=== PATIENT | female | born 1980 | race Two or more races ===

== ENCOUNTER 2017-04-30 19:04 | Emergency (ER) | payer OTHER ==
[~2017-04-30] VITALS: Ht 162.6 cm; Wt 104.3 kg
[2017-04-30] MEDS ORDERED: BYSTOLIC10 MG (20:01)
[2017-05-01] MEDS ORDERED: ALBUTEROL2.5 MG/3 M IH (04:28)
[2017-05-01] MEDS ORDERED: ZITHROMAX500 MG PO (04:28)
== END 2017-05-01 04:23 | disposition home or self-care (01) ==
LOC: ER 19:04
DX: J11.1 Influenza due to unidentified influenza virus with other respiratory manifestations (principal); J06.9 Acute upper respiratory infection, unspecified

== ENCOUNTER 2018-12-25 16:27 | Emergency (ER) | payer OTHER ==
[~2018-12-25] VITALS: Ht 162.6 cm; Wt 97.5 kg
[~2018-12-25 16:27] MED LIST: ALBUTEROL2.5 MG/3 M IH; BYSTOLIC10 MG; ZITHROMAX500 MG PO
[2018-12-25] MEDS ORDERED: BYSTOLIC10 MG PO (18:36)
[2018-12-25] MEDS ORDERED: VISTARIL25 MG PO (18:36)
== END 2018-12-25 19:56 | disposition home or self-care (01) ==
LOC: ER 16:27
DX: I16.0 Hypertensive urgency (principal); I10 Essential (primary) hypertension; F06.4 Anxiety disorder due to known physiological condition

== ENCOUNTER 2019-02-09 12:32 | Emergency (ER) | payer OTHER ==
[~2019-02-09] VITALS: Ht 162.6 cm; Wt 97.5 kg
[~2019-02-09 12:32] MED LIST changes: +BYSTOLIC10 MG PO; +VISTARIL25 MG PO
[2019-02-09] MEDS ORDERED: KETO10TA2 PO (16:30)
== END 2019-02-09 16:34 | disposition home or self-care (01) ==
LOC: ER 12:32
DX: S83.91XA Sprain of unspecified site of right knee, initial encounter (principal); M25.561 Pain in right knee; X50.0XXA Overexertion from strenuous movement or load, initial encounter; Y93.89 Activity, other specified; Y92.89 Other specified places as the place of occurrence of the external cause; Y99.8 Other external cause status